=== PATIENT | male | born 1970 | race Caucasian/White ===

== ENCOUNTER 2016-09-05 23:13 | Emergency (ER) | payer OTHER ==
[~2016-09-05] VITALS: Ht 172.7 cm; Wt 63.6 kg
[2016-09-05 23:22] VITALS: BP 115/80; PULSE 89; RESP 16; O2SAT 98
--- NOTE | 2016-09-05 23:46 | ED.REPORT ---
HPI-Dental/Mouth Prob Date of Service Sep 05, 2016 ED Provider: Kirk Heredia MD The patient is a healthy 45 year old male who presents to the ED with left lower tooth pain onset five days ago, after a dental appointment. Associated symptoms include fatigue and subjective fever. The patient denies other symptoms. He has an appointment to have the affected tooth extracted tomorrow. Nursing Notes Stated Complaint: TOOTH ABSCESS Chief Complaint: Dental Nursing Notes Reviewed: Yes Allergies: Coded Allergies: lidocaine (Verified Allergy, Unknown, 09/05/16) General Time Seen by MD: 23:45 Chief Complaint Tooth pain Hx Obtained From: Patient Arrived By: Walk-in Onset Occurred: 5 days ago Symptom Duration: Since onset Location: : Tooth lower L molar Quality: Painful Severity: Current: Moderate Severity: Maximum: Moderate Pertinent Negative: Relieved by nothing Recent Healthcare: No recent doctor visit Past Medical History Past Medical History None reported Past Surgical History None reported Smoking History Unknown if Ever Smoker Ambulatory Status Independent Review of Systems Constitutional: Reports: Fatigue, Fever (Subjective) Ears / Nose / Throat: Reports: Toothache (Left Lower) Respiratory: Denies: Non-productive cough, Shortness of breath GI: Denies: Diarrhea, Vomiting Complete sys rev & neg: except as marked. Physical Exam Initial Vital Signs Vital Signs (First) Date Time Temp Pulse Resp B/P Pulse Ox O2 Delivery O2 Flow Rate FiO2 09/05/16 23:22 36.2 89 16 115/80 98 Room Air Initial VS: Reviewed, Vital signs normal Head / Eyes: Atraumatic, Normocephalic Respiratory: No respiratory distress Skin: Warm, Dry, No cyanosis Neurologic: Alert, Oriented, Nonfocal Psychiatric: Mood/affect normal, Behavior normal, Normal thought content ENT: Airway patent, Mucous membranes moist Dental / Gums: Positive: Gum swelling (Adjacent to tooth #17), Tender to percussion (Tooth #17), Negative: Decay extensive, Decay single tooth Mild tenderness to angle of jaw adjacent to tooth #17 Neck: Supple, Full range of motion General/Constitutional: Awake, Alert, No acute distress Re-Eval/Medical Decision Med Decision/Clinical Course 45-year-old male with unknown cracked tooth for which she has an appointment tomorrow to see the dentist. However it has become increasingly painful. He was placed on antibiotics and will follow up with his dentist tomorrow. Re-Evaluation/Progress : Time of Eval: 23:55 Patient Status: Condition improved Re-Evaluation/Progress Note: Discussed with patient physical exam findings, diagnosis, and plan for discharge. Follow-up and return to the ER instructions given. Patient agrees with plan for care and all questions were addressed. Counseled Regarding: Diagnosis, Need for follow-up, When/why to return to ED Discharge & Departure Primary Impression: Dental abscess Disposition: Home Discharge Condition All VS Reviewed: Yes Condition: Improved Additional Instructions: Thank you for entrusting us with your care. Penicillin 500 mg by mouth 3 times a day, #30 dispensed. Use Tylenol or Ibuprofen as needed for pain. Keep your dentist appointment tomorrow. Return to the ER with any new or worsening symptoms. Scribe Attestation Portions of this note were transcribed by Renetta Gavin. I, Dr. Heredia, personally performed the history, physical exam, and medical decision-making; I reviewed and confirmed the accuracy of the information in the transcribed note. Signed by: Jeni Rosenthal, 09/06/2016, 01:40 Kirk Heredia MD Sep 05, 2016 23:46 RENETTA GAVIN Sep 05, 2016 23:56
[2016-09-06 00:41] VITALS: BP 104/65; PULSE 73; RESP 16; O2SAT 97
[2016-09-06] MEDS ORDERED: _Penicillin VK 500 mg Tablet PO SCH (08:30)
== END 2016-09-06 01:02 | disposition home or self-care (01) ==
LOC: SED 23:13
DX: K04.7 Periapical abscess without sinus (principal); R53.83 Other fatigue; R50.9 Fever, unspecified